=== PATIENT | female | born 1975 | race Two or more races ===

== ENCOUNTER 2018-04-22 06:20 | Day surgery (SDC) | payer OTHER ==
[~2018-04-22] VITALS: Ht 170.2 cm; Wt 88.0 kg
[2018-04-22] MEDS ORDERED: SODIUM CHLORIDE 0.9% 1,000 ML IV ONE ×2 (06:30→06:39)
[2018-04-22] MEDS ORDERED: MIDAZOLAM HCL 2 MG/2 ML VIAL ONE (07:20)
[2018-04-22] MEDS ORDERED: FentaNYL CITRATE-PF 100 MCG/2 ML VIAL ONE (07:21)
[2018-04-22] MEDS ORDERED: MethylPREDNISolone SOD SUCC 125 MG/2 ML VIAL IVP ONE (09:15)
[2018-04-22] MEDS ORDERED: PRED10 PO (09:37)
[2018-04-22] MEDS ORDERED: P-EP-31 PO (09:37)
[2018-04-22] MEDS ORDERED: FERR-89 PO (09:37)
[2018-04-22] MEDS ORDERED: COMBISP IH (09:37)
[2018-04-22] MEDS ORDERED: IPRNEB IH (09:37)
[2018-04-22] MEDS ORDERED: ALBU8.5H8 IH (09:37)
[2018-04-22] MEDS ORDERED: DOXY50CA7 PO (09:37)
[2018-04-22] MEDS ORDERED: D-ME118S13 PO (09:37)
[2018-04-22] MEDS ORDERED: LORA10TA7 PO (09:37)
[2018-04-22] MEDS ORDERED: RANI150T7 PO (09:37)
[2018-04-22] MEDS ORDERED: LEVO500 PO (09:37)
[2018-04-22] MEDS ORDERED: TIOT4MIS2 PO (09:37)
[2018-04-22] MEDS ORDERED: EPIN0.152 IM (09:37)
[2018-04-22] MEDS ORDERED: CETI-290 PO (09:37)
[2018-04-22] MEDS ORDERED: FLUT16H NASAL (09:37)
[2018-04-22] MEDS ORDERED: MethylPREDNISolone SOD SUCC 125 MG/2 ML VIAL ONE (09:44)
[2018-04-22] MEDS ORDERED: LIDOCAINE 2% 30 ML JELLY TP ONE (12:00)
[2018-04-22] MEDS ORDERED: LIDOCAINE 4% 50 ML SOLUTION TP ONE (12:00)
[2018-04-22] MEDS ORDERED: ALBUTEROL SULFATE 2.5 MG/0.5 ML NEB SOLUTION NEB ONE (12:00)
[2018-04-22] MEDS ORDERED: BENZOCAINE 20% 50 MCG/SPRAY 57 GM TP ONE (12:00)
[2018-04-22] MEDS ORDERED: OXYGEN THERAPY IH SCH (20:00)
== END 2018-04-22 11:30 | disposition home or self-care (01) ==
LOC: SURGERY 06:20
PROVIDERS: ATTEND Internal Medicine Critical Care Medicine
DX: J38.4 Edema of larynx (principal); B37.0 Candidal stomatitis; J84.111 Idiopathic interstitial pneumonia, not otherwise specified; J98.09 Other diseases of bronchus, not elsewhere classified; J98.8 Other specified respiratory disorders; Z90.49 Acquired absence of other specified parts of digestive tract; Z87.09 Personal history of other diseases of the respiratory system; Z79.2 Long term (current) use of antibiotics; Z98.890 Other specified postprocedural states; Z79.899 Other long term (current) drug therapy
CPT/HCPCS: 31623; 31624; 71045; 87015; 87070; 87205; 87206; 87220; 88108; 88312; J2250; J2930; J3010; J7030

== ENCOUNTER 2020-05-06 10:51 | Emergency (ER) | payer OTHER ==
[~2020-05-06] VITALS: Ht 170.2 cm; Wt 88.6 kg
[~2020-05-06 10:51] MED LIST: ALBU8.5H8 IH; CETI-450 PO; COMBISP IH; D-ME118S13 PO; DOXY50CA7 PO; EPIN0.152 IM; FERR-89 PO; FLUT16H NASAL; IPRNEB IH; LEVO-72 PO; LORA10TA7 PO; P-EP-31 PO; PRED10 PO; RANI150T7 PO; TIOT4MIS2 PO
[2020-05-06 10:58] VITALS: BP 129/95
[2020-05-06] MEDS ORDERED: HYDROCODONE/ACETAMINOPHEN 5-325 MG TABLET PO ONE (12:45)
== END 2020-05-06 13:00 | disposition home or self-care (01) ==
LOC: EMS 10:51
DX: S90.112A Contusion of left great toe without damage to nail, initial encounter (principal); W20.8XXA Other cause of strike by thrown, projected or falling object, initial encounter; Y93.89 Activity, other specified; Y92.89 Other specified places as the place of occurrence of the external cause; Y99.8 Other external cause status